=== PATIENT | female | born 1970 | race Caucasian/White ===

== ENCOUNTER 2023-04-23 23:56 | Emergency (ER) | payer OTHER ==
[~2023-04-23] VITALS: Ht 154.9 cm; Wt 73.9 kg
[2023-04-24 00:17] VITALS: BP_SYST 150; PULSE 70; RESP 20; TEMP 97.4; O2SAT 96
[2023-04-24] MEDS ORDERED: DEXAMETHASONE SOD PHOSPHATE 10 MG/ML VIAL IM ONE (02:15)
[2023-04-24 02:40] VITALS: BP_SYST 151; PULSE 72; RESP 18; TEMP 97.8; O2SAT 97
== END 2023-04-24 02:40 | disposition home or self-care (01) ==
LOC: SED 23:56
DX: R51.9 Headache, unspecified (principal); R09.81 Nasal congestion; E78.5 Hyperlipidemia, unspecified; Z79.899 Other long term (current) drug therapy
CPT/HCPCS: 99283; 96372; J1100